=== PATIENT | female | born 1960 | race Caucasian/White ===

== ENCOUNTER 2024-08-11 10:22 | Day surgery (SDC) | payer SELFPAY ==
--- NOTE | 2024-08-09 17:45 | PAT.ANESEVAL ---
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 When Was Last Pacemaker Check QUESTION #4 FULL TEXT: You/Your Family Experience fever (hyperthermia) with Anesthesia Last Oral Intake Last Oral intake: Last Oral Intake NPO since Meds taken in AM with sips of water? Meds patient instructed to take am of surgery PONV PONV - honey processor: PONV - honey processor Female Yes 08/09/24 08:43 HX of Motion Sickness No 08/09/24 08:43 HX of N/V After Surgery No 08/09/24 08:43 Non-Smoker Yes 08/09/24 08:43 Duration of Surgery greater Yes 08/09/24 08:43 than 60 minutes Number of Risk Factors 3 08/09/24 08:43 PONV Score Moderate Risk 08/09/24 08:43 Respiratory Assessment Respiratory Assessment - honey processor: Respiratory Tract Infection Hx - honey processor Hx Respiratory Tract Infection No 08/09/24 08:43 STOP Sleep Apnea STOP Sleep Apnea - honey processor: STOP Sleep Apnea - honey processor Hx Hypertension No 08/09/24 08:43 Hx Sleep Apnea No 08/09/24 08:43 CPAP BIPAP Do you snore loudly (louder No 08/09/24 08:43 than talking or can be heard Do you often feel tired/ No 08/09/24 08:43 fatigued/ sleepy during daytime? Has anyone observed you stop No 08/09/24 08:43 breathing during sleep? STOP Results Negative 08/09/24 08:43 QUESTION #5 FULL TEXT : Do you snore loudly (louder than talking or can be heard through closed doors)? 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 Specify any problems Hx of Preganancy in last 3 N/A 08/09/24 08:43 Months Nurse Filling Out Transfusion NBU[facility]ER 08/09/24 08:43 & Questions: Date: 08/09/24 08/09/24 08:43 Time: 08:45 08/09/24 08:43 Patient unable to answer at this time (ie. confused, unrespo /Reproduction History /Reproductive History - honey processor: /Reproductive Hx- honey processor Hx Now No 08/09/24 08:43 Gestational Age (in weeks): EDC: Hx Hx Para Hx Section SAB No 08/09/24 08:43 PENDING SALE TO [facility] Medical History (Updated 08/09/24 @ 09:17 by Malu Garay) Wears glasses Hemorrhoids Heartburn Non-smoker History of echocardiogram (~2021) Cardiology follow-up encounter SVT (supraventricular tachycardia) Home Medications ?Medication ?Instructions ?Recorded ?Last Taken ?Type multivitamin (Daily Multi-Vitamin 1 tab PO DAILY 08/09/24 Unknown History tablet) Allergy/AdvReac Type Severity Reaction Status Date / Time No Known Allergies Allergy Verified 08/09/24 08:42 Surgical History (Updated 08/09/24 @ 09:17 by Malu Garay) History of cardiac radiofrequency ablation (~2021) History of hernia surgery History of hysterectomy Social History Smoking Status: Never smoker Audit: Pertinent Findings Pertinent Findings EKG Perinent findings: June 25, 2024. Supraventricular tachycardia. Ventricular rate is [address] depression. August 08, 2024. Sinus rhythm. Echo (EF%) pertinent findings: March 26, 2022. 55 to 60% ejection fraction. No aortic stenosis noted. Consult pertinent findings: June 30, 2022. Dr. Ibarra 1. Supraventricular tachycardia-resolved with ablation. Additional pertinent findings: March 27, 2022. Electrophysiology study and ablation. 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 Successful. Recommendation Anesthesia Recommendation Anesthesia recommendation: OPTIMIZED for anesthesia
[2024-08-11] VITALS (11 sets, daily range): BP systolic 120–158; BP diastolic 73–124; PULSE 78–95; RESP 16; TEMP 36.1–37; O2SAT 95–100; BMI 34.7
[2024-08-11] MEDS: 0.9% Normal Saline (1000mL) 1,000 ML 15 ML IV (10:54)
--- NOTE | 2024-08-11 10:57 | PCM.PRE.AN2 ---
ASA Classification* ASA Classification ASA Classification: 2 Assessment & Plan Anesthesia* Anesthesia Assessment Anesthesia Assessment: Discussed sedation and/or anesthesia options, risks, benefits, and alternatives with patient/parents/legal guardian/POA. Questions invited. The patient/parents/legal guardian/POA seems to understand and agrees to proceed with anesthesia plan. Reviewed the physical assessment, medical history, allergy history and patient home medications list prior to surgery/procedure/anesthetic and documented any changes. Performed airway and anesthesia risk assessments. 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 When Was Last Pacemaker Check QUESTION #4 FULL TEXT: You/Your Family Experience fever (hyperthermia) with Anesthesia Last Oral Intake Last Oral intake: Last Oral Intake NPO since 05:30 08/11/24 10:44 Meds taken in AM with sips of water? Meds patient instructed to take am of surgery PONV PONV - wire preparation machine tender: PONV - wire preparation machine tender Female Yes 08/09/24 08:43 HX of Motion Sickness No 08/09/24 08:43 HX of N/V After Surgery No 08/09/24 08:43 Non-Smoker Yes 08/09/24 08:43 Duration of Surgery greater Yes 08/09/24 08:43 than 60 minutes Number of Risk Factors 3 08/09/24 08:43 PONV Score Moderate Risk 08/09/24 08:43 Height & Weight Height & Weight: Anesthesia: Height & Weight Height 5 ft 2 in 08/11/24 10:44 Weight: 86.183 kg 08/11/24 10:44 Body Mass Index (BMI) 34.7 08/11/24 10:44 Respiratory Assessment Respiratory Assessment - wire preparation machine tender: Respiratory Tract Infection Hx - wire preparation machine tender Hx Respiratory Tract Infection No 08/09/24 08:43 STOP Sleep Apnea STOP Sleep Apnea - wire preparation machine tender: STOP Sleep Apnea - wire preparation machine tender Hx Hypertension No 08/09/24 08:43 Hx Sleep Apnea No 08/09/24 08:43 CPAP BIPAP Do you snore loudly (louder No 08/09/24 08:43 than talking or can be heard Do you often feel tired/ No 08/09/24 08:43 fatigued/ sleepy during daytime? Has anyone observed you stop No 08/09/24 08:43 breathing during sleep? STOP Results Negative 08/09/24 08:43 QUESTION #5 FULL TEXT : Do you snore loudly (louder than talking or can be heard through closed doors)? 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 Specify any problems Hx of Preganancy in last 3 N/A 08/09/24 08:43 Months Nurse Filling Out Transfusion [facility]BU[facility]ER 08/09/24 08:43 & Questions: Date: 08/09/24 08/09/24 08:43 Time: 08:45 08/09/24 08:43 Patient unable to answer at this time (ie. confused, unrespo /Reproduction History /Reproductive History - wire preparation machine tender: /Reproductive Hx- wire preparation machine tender Hx Now No 08/09/24 08:43 Gestational Age (in weeks): EDC: Hx Hx Para Hx Section SAB No 08/09/24 08:43 Active Medications Active Medications: Current Medications Generic Name Dose Route Start Last Admin Trade Name Freq PRN Reason Stop Dose Admin Cefazolin Sodium 2 gm/ N/A 20 mls @ 400 mls/hr 08/11/24 14:40 IV 08/11/24 14:42 PREOP ONE Sodium Chloride 1,000 mls @ 15 mls/hr 08/11/24 10:30 08/11/24 10:54 IV 08/16/24 23:49 15 mls/hr .Q48H MAREK Administration Protocol [facility] Medical History Wears glasses Hemorrhoids Heartburn Non-smoker History of echocardiogram (~2021) Cardiology follow-up encounter SVT (supraventricular tachycardia) Home Medications ?Medication ?Instructions ?Recorded ?Last Taken ?Type multivitamin (Daily Multi-Vitamin 1 tab PO DAILY 08/09/24 Unknown History tablet) Allergy/AdvReac Type Severity Reaction Status Date / Time No Known Allergies Allergy Verified 08/11/24 10:43 Surgical History History of cardiac radiofrequency ablation (~2021) History of hernia surgery History of hysterectomy Social History Smoking Status: Never smoker Review of Systems (Anesthesia) ROS Narrative System reviewed and no additional complaints, except as documented.
[2024-08-11] MEDS: Cefazolin 2 GM in Syringe IV (11:58)
--- NOTE | 2024-08-11 12:15 | RAD_ITS ---
STUDY: X-RAY - RIGHT ANKLE REASON FOR EXAM: Female, 63 years old. ORIF RT ANKLE TECHNIQUE: 5 intraoperative fluoroscopic spot films of the right ankle. COMPARISON: None. FINDINGS: Intraoperative fluoroscopic spot films were provided during ORIF hardware placement. There is a reconstruction plate along the lateral aspect of the distal fibula with multiple fixation screws. There is also a distal tibiotalar tight rope with Endobutton. There is gas along the lateral soft tissues. Normal visualized talus and visualized calcaneus. The visualized subtalar, talonavicular, and visualized calcaneocuboid articulations are normal. RAD/Ankle 2 Views IMPRESSION: Intraoperative fluoroscopic spot films provided during ORIF hardware placement of the right ankle. Electronically Signed: Don Chow MD at 15:14 EST ,
[2024-08-11] MEDS: Bupiv/Epi 0.25% 30 ML Vial (13:03)
[2024-08-11] MEDS: Ketorolac 15 MG/ML Vial IV (13:43)
--- NOTE | 2024-08-11 13:47 | PCM.OPRPT ---
Operative Report (Standard) Operative Information Date of Procedure: 08/11/24 Pre-Operative Diagnosis: Right ankle bimalleolar ankle fracture Post-Operative Diagnosis: Right ankle bimalleolar ankle fracture Surgery/Procedure Performed: 1. Open reduction internal fixation right lateral malleolus 2. Open reduction internal fixation right ankle syndesmosis seamer: Yes Caisson Worker: Anan Crump Tasks completed by marketing communications assistant: Opening & closing, Implanting device and Hemostasis: Electrocautery Additional desk assistant?: No Type of Anesthesia: General/Regional RN Documented Start/Stop Times: Operation Date: 08/11/24 12:00 Case Time Into Pre-Op 08/11/24 10:29 Anesthesia Start 08/11/24 11:58 Into Room 08/11/24 11:58 Out of Pre-Op 08/11/24 11:58 Procedure Start 08/11/24 12:16 Procedure End 08/11/24 13:19 Anesthesia End 08/11/24 13:26 Out of Room 08/11/24 13:26 Into Recovery 08/11/24 13:30 Procedure Start Time: 12:16 Procedure Stop Time: 13:19 Select all DRAINS/GRAFTS/IMPLANTS that apply: Implanted device Implanted device details: Arthrex 8 hole titanium third tubular plate, tight rope Estimated Blood Loss: 10 cc Specimen collected: No Description of surgery: Patient was identified in the preoperative holding area by name, medical record number, and date of . The operative extremity was marked. All questions were answered to the patient's satisfaction. Popliteal block was then administered by anesthesia staff. At time of her procedure, patient was brought to the operative suite and positioned supine a standard operating table. General anesthesia was induced and LMA placed. Well-padded pneumatic tourniquet was applied to the right upper thigh. All bony prominences were well-padded. We prepped and draped the right lower extremity under normal, sterile orthopedic fashion. We performed a timeout confirming the side, site, and operation to be performed. No concerns were voiced and we elected to proceed with surgery. 2 g Ancef was administered IV prior to tourniquet inflation by anesthesia staff. I then exsanguinated the right lower extremity with and Esmarch bandage. Tourniquet was inflated to 250 mmHg which remained up for approximately 30 minutes. Esmarch was removed. Standard lateral approach to the distal fibula was performed. Superficial peroneal nerve was identified protected. Fascia was opened in line with the incision. Fracture was identified. Fracture early callus was debrided. Anatomic reduction was achieved with lobster-claw. I attempted to place a lag screw but was unsuccessful due to the short obliquity. I elected to proceed with plate fixation. An 8 hole tubular plate was placed along the lateral cortex. 3 cortical screws were placed proximal and distal the fracture site other than a unicortical locking screw in the most distal portion of the plate. Fracture was stable following fixation. Given the posterior malleolus fracture, elected to place a tight rope to fix the posterior malleolus indirectly and restore the stability of the syndesmosis. A cannulated drill technique was utilized to place a tight rope through the lateral plate parallel to the joint surface with a dorsiflexed foot. We drilled across 4 cortices in standard fashion. Tight rope was placed and flipped in standard fashion and tightened. Orthogonal fluoroscopy confirmed anatomic reduction and stable syndesmosis with cotton testing external rotation stress. The posterior malleolus was anatomically reduced. Tourniquet was deflated. Hemostasis achieved with Bovie cautery. Field block was administered with 10 cc 0.25% bupivacaine with epinephrine. Fascia was reapproximated with interrupted [id number] 0 Vicryl suture. 2-0 Vicryl suture was used to reapproximate the dermis in buried fashion. Skin was reapproximated with interrupted simple 3-0 nylon suture. Bulky sterile compression dressing was applied. A well-padded 3 sided AO type short leg splint was applied in maximal dorsiflexion. Patient was awakened from anesthesia. She tolerated the procedure well without apparent complication. She was transferred to her [place] and subsequent to PACU in stable condition. Postoperative plan: Nonweightbearing x 6 weeks Follow-up in 2 weeks for transition to boot and out of splint x-rays Ice and elevation Aspirin 81 mg twice daily for DVT prophylaxis x 6 weeks Oxycodone prescription Thursday, Tylenol and ibuprofen encouraged Need for skilled desk assistant: Anna Crump PA-C was critical to the outcome of the case. During the course of the procedure the physician desk assistant played a vital role. Her intimate knowledge of my steps in the procedure aided in safe and expedient completion of the procedure. The PA played a vital role in positioning particularly in obtaining the appropriate positioning. The PA was also vital in the retraction of soft tissues during the exposure and protecting vital structures. The PA was also vital and obtaining fracture reduction and assisting with hardware placement. She also played a vital role in closure and splint application with my direct supervision. Surgical Findings: Stable bimalleolar fracture following fixation Complications Complications: No Admit VTE Documentation VTE Present on Admission: No VTE Mechan Device Prophylaxis: SCD's VTE Pharm Prophylaxis ordered?: Yes
--- NOTE | 2024-08-11 13:50 | PCM.POST.ANE ---
Anesthesia: Postop Eval I Current Vital Signs Temperature: 97 F Pulse Rate: 86 Blood Pressure: 157/93 Respiratory Rate: 16 Pulse Ox: 95 Oxygen Delivery Method: Room Air Assessment Airway patent: Yes Spontaneous unlabored respirations: Yes nausea: No Vomiting: No Anesthesia Complication: No Fluid Hydration Crystalloid volume administer (ml): 300 Total IV fluid infused: 300 Progress Note Anesthesia document: Postop Eval 1 completed: Yes
--- NOTE | 2024-08-11 14:39 | PCM.POSTANE2 ---
Anesthesia Postop Eval I Sum Postop Eval Completion status Anesthesia document: Postop Eval 1 completed: Yes Anesthesia Postop Eval I Summary Anesthesia Postop Eval I Summary: Anesthesia Postop Eval I: Assessment Summary Airway patent Yes 08/11/24 14:38 Spontaneous unlabored Yes 08/11/24 14:38 respirations Mental status nausea No 08/11/24 14:38 Vomiting No 08/11/24 14:38 Anesthesia Postop Eval I: Fluid Summary Crystalloid volume administer 300 08/11/24 14:38 (ml) Colloids volume administered ( ml) Blood Product volume administered (ml) Total IV fluid infused 300 08/11/24 14:38 Anesthesia Postop Eval I: Summary Notes Anesthesia Complication No 08/11/24 14:38 Anesthesia Complication Comment: Post-operative progress note Anesthesia: Postop Eval II Evaluation Mental status: Awake Pain Level: 0 nausea: No Vomiting: No
[2024-08-11] MEDS: Gabapentin 300 MG Capsule PO (14:55)
[2024-08-11] MEDS: Acetaminophen 500 MG Tablet 1000 MG PO (14:55)
== END 2024-08-11 16:16 | disposition home or self-care (01) ==
LOC: SDC 10:25 → AC 10:27
PROVIDERS: PCP Family Medicine; Referring Provider Student in an Organized Health Care Education/Training Program; Visit Provider Student in an Organized Health Care Education/Training Program
PROC: (CPT 27814; principal; 2024-08-11 11:40)
DX: S82.844A Nondisplaced bimalleolar fracture of right lower leg, initial encounter for closed fracture (principal); W00.0XXA Fall on same level due to ice and snow, initial encounter
CPT/HCPCS: 27814; 27829; 01462; 64450; 73600; 76000; C1713; J2405